=== PATIENT | male | born 1990 | race Hispanic/Latino ===

== ENCOUNTER 2018-12-23 09:47 | Emergency (ER) | payer OTHER, SELFPAY ==
[2018-12-23 09:53] VITALS: BP 121/75; PULSE 70; RESP 18; TEMP 36.2; O2SAT 100
--- NOTE | 2018-12-23 11:41 | ED.HA ---
HPI - Headache General Chief Complaint: Headache Stated Complaint: Migraine for 6 days, trbl thinking, dizzy Time Seen by Provider: 12/23/18 09:55 Source: patient and family Mode of arrival: ambulatory Limitations: no limitations History of Present Illness HPI Narrative: 28-year-old male, nonsmoker and otherwise healthy presents with a chief complaint of a gradually worsening squeezing-type headache over the past few days. He states it is worse with bright lights, loud noise and exertion. He admits to nausea but denies any vomiting. He has had somewhat similar migraine type headaches in the past. He has not been ill and denies any fever, chills or neck pain. He has had no traumatic event and denies any change in diet or medications. MD Complaint: migraine Onset (ago): day(s) Onset description: gradual Location: diffuse Severity: moderate Severity scale (1-10): 7 Quality: aching, throbbing and similar to previous headaches Relieving factors: dark room Exacerbating factors: exertion, light and noise Associated symptoms: nausea Treatments prior to arrival: none Related Data Home Medications Medication Instructions Recorded Confirmed ibuprofen 1 dose PO PRN PRN 12/23/18 12/23/18 ibuprofen [Advil] 1 dose PO DAILY 12/23/18 12/23/18 Allergies Allergy/AdvReac Type Severity Reaction Status Date / Time No Known Drug Allergies Allergy Verified 06/24/18 08:13 Review of Systems Constitutional Denies chills, Denies fever(s), Reports headache(s), Denies lethargy and Denies weakness Eyes Denies change in vision, Denies eye discharge, Denies irritation and Denies loss of vision ENT Ears, Nose, Mouth, and Throat: Denies change in voice, Reports headache(s), Denies neck pain and Denies sore throat Cardiovascular Denies chest pain, Denies irregular heart rhythm, Denies lightheadedness, Denies palpitations, Denies dyspnea, Denies dyspnea on exertion and Denies orthopnea Respiratory Denies cough, Denies dyspnea, Denies dyspnea on exertion and Denies wheezing Gastrointestinal Gastrointestinal: Denies abdominal pain, Denies change in bowel habits, Denies diarrhea, Denies nausea and Denies vomiting Genitourinary Denies hematuria, Denies flank pain, Denies urinary incontinence and Denies urinary urgency Musculoskeletal Denies neck pain Integumentary/Breasts Denies pruritus, Denies erythema, Denies rash and Denies wounds Neurologic Denies confusion, Reports headache(s), Denies loss of vision and Denies weakness Psychiatric Denies anxiety, Denies confusion, Denies depression, Denies homicidal ideation and Denies suicidal ideation Endocrine Denies palpitations Hematologic/Lymphatic Denies easy bruising Allergic/Immunologic Denies wheezing PFSH Medical History Asthma (Chronic ~1990) Chronic back pain (Chronic Unknown) Neurologic disorder (Chronic 2003) Surgical History Hx of tonsillectomy (Resolved ~2000) Family History Father Age: 53 Deaf Mother Age: 55 Hypertension Social History Smoking Status: Former smoker Family History Father Age: 53 Deaf Mother Age: 55 Hypertension Social History Smoking Status: Former smoker Exam Narrative Exam Narrative: 28-year-old male, appears stated age, obviously uncomfortable, sitting in a dark room with eyes closed Initial Vital Signs Initial Vital Signs: Vital Signs Temperature 97.1 F L 12/23/18 09:53 Pulse Rate 70 12/23/18 09:53 Respiratory Rate 18 12/23/18 09:53 Blood Pressure 121/75 12/23/18 09:53 Pulse Oximetry 100 12/23/18 09:53 Const General: cooperative, well developed and in distress Nutritional Appearance: well nourished Orientation: alert, awake, oriented x3 and not confused HENNV Head: normal to inspection Ears: TM normal on the right and TM normal on the left Nose: external nose normal Face and sinus: normal facial exam Mouth: oral mucosae normal Teeth and gingiva: dentition normal Eyes General: appearance normal, both eyes and all related structures Eyelids: eyelids normal Conjunctivae: conjunctivae normal Sclera: sclerae normal Pupils: PERRL EOM: EOM intact bilaterally Neck Neck: normal visual inspection, No positive Brudzinski's sign and No positive Kernig's sign Chest Chest: normal inspection of the chest Resp Effort & Inspection: normal respiratory effort, able to speak in complete sentences, no respiratory distress and no use of accessory muscles Auscultation: clear to auscultation bilaterally, no rales, no rhonchi and no wheezes Cardio Rate: regular rate Rhythm: regular rhythm Heart Sounds: no click, no gallops, no murmurs and no rubs Pulses: normal peripheral pulses GI Inspection: non-distended Palpation: soft, no hepatosplenomegaly, No guarding, No pulsatile mass and No tender Auscultation: normal bowel sounds Back/Spine/Pelvis Back: No CVA tenderness Cervical Spine: cervical ROM normal and No pain with cervical ROM Thoracic/Lumbar Spine: thoracic and lumbar spine normal to inspection Neuro General: alert, awake and oriented x3 Cranial Nerves: CN's II-XI intact bilaterally Cognition: normal cognition Speech: speech normal Gait: normal gait Motor: muscle tone normal throughout Sensory Exam: no sensory deficits noted Course Orders Ordered: Discontinued Medications Dexamethasone (Decadron) 10 mg IV NOW ONE Stop: 12/23/18 11:50 Last Admin: 12/23/18 12:15 Dose: 10 mg Diphenhydramine HCl (Benadryl) 25 mg IV NOW ONE Stop: 12/23/18 11:50 Last Admin: 12/23/18 12:15 Dose: 25 mg Sodium Chloride (Normal Saline 0.9%) 1,000 mls @ 1,000 mls/hr IV BOLUS ONE Stop: 12/23/18 12:48 Last Infusion: 12/23/18 13:13 Dose: 0 mls/hr Admin: 12/23/18 12:16 Dose: 1,000 mls/hr Ketorolac Tromethamine (Toradol) 15 mg IV NOW ONE Stop: 12/23/18 11:50 Last Admin: 12/23/18 12:16 Dose: 15 mg Metoclopramide HCl (Reglan) 10 mg IV NOW ONE Stop: 12/23/18 11:50 Last Admin: 12/23/18 12:16 Dose: 10 mg Reevaluation(s) Reevaluation #1: Patient feels a remarkable improvement after the above-stated therapies Vital Signs - 8 hr 12/23/18 12:10 12/23/18 13:13 Pulse Rate 57 L 62 Respiratory Rate 16 18 Blood Pressure 109/60 Blood Pressure [Right Arm] 111/70 Pulse Oximetry 99 100 MDM - Headache Differential Diagnosis Differential diagnosis: Likely migraine, tension headache, subarachnoid hemorrhage, headache, meningitis, sinusitis and postconcussion syndrome MDM Narrative Medical decision making narrative: Multiple etiologies for patient's symptoms considered including: [Migraine versus atypical migraine versus other] Patient's symptoms improved or duration of stay with above-stated therapies. Findings and discharge diagnosis discussed with patient/family followed by verbalization of understanding Return precautions discussed with patient/family whom verbalize understanding. Discharge Plan Departure Patient Disposition: Home Clinical Impression: Migraine Qualifiers: Migraine type: unspecified Status migrainosus presence: without status migrainosus Intractability: not intractable Qualified Code(s): G43.909 - Migraine, unspecified, not intractable, without status migrainosus Discharge Date/Time: 12/23/18 13:15 Interventions: ED Discharge Assessment Last Done: 12/23/18 13:13 Instructions: Migraine -- Adult Activity Restrictions/Additional Instructions: *You have been diagnosed with [ migraine type headache ] *What to do: *Take medications as directed: tylenol or motrin for ongoing pain *Follow up with your primary care provider in 2-3 days, call for an appointment. Let them know you were seen in the Emergency Department and that we ask that you be seen in follow up *Return to ER if you should have any new, worsening or concerning symptoms Prescriptions: No Action ibuprofen [Advil] 200 mg Tablet 1 dose PO DAILY RF: 0 ibuprofen 1 dose PO PRN PRN (Reason: pain) RF: 0 Referrals: Jes Keys DO [Primary Care Provider] -
[2018-12-23 12:10] VITALS: BP 111/70; PULSE 57; RESP 16; O2SAT 99
[2018-12-23] MEDS: DEXAMETHASONE 10 MG/ML VIAL IV (12:15)
[2018-12-23] MEDS: diphenhydrAMINE 50 MG/ML VIAL 25 MG IV (12:15)
[2018-12-23] MEDS: METOCLOPRAMIDE 10 MG/2 ML INJ IV (12:16)
[2018-12-23] MEDS: SODIUM CHLORIDE 0.9% 1,000 ML 1000 ML IV (12:16)
[2018-12-23] MEDS: KETOROLAC 60 MG/2 ML VIAL 15 MG IV (12:16)
[2018-12-23 13:13] VITALS: BP 109/60; PULSE 62; RESP 18; O2SAT 100
== END 2018-12-23 13:15 | disposition home or self-care (01) ==
PROVIDERS: Emergency Provider Emergency Medicine; PCP Family Medicine
DX: G43.909 Migraine, unspecified, not intractable, without status migrainosus (principal)
CPT/HCPCS: 96361; 96374; 96375; 99283; 99284; J1100; J1200; J1885; J2765

== ENCOUNTER 2019-03-23 14:27 | Emergency (ER) | payer OTHER, SELFPAY ==
[2019-03-23 14:30] VITALS: BP 135/89; PULSE 75; RESP 16; TEMP 37.2; O2SAT 99
[2019-03-23 15:11] VITALS: BP 114/75; PULSE 74; RESP 18; O2SAT 99
[2019-03-23] MEDS: ONDANSETRON 4 MG ODT PO (15:37)
[2019-03-23] MEDS: IBUPROFEN 400 MG TABLET 800 MG PO (15:37)
[2019-03-23] MEDS: MECLIZINE HCL 12.5 MG TABLET 25 MG PO (15:37)
[2019-03-23 16:00] VITALS: BP 125/84; PULSE 73; RESP 18; O2SAT 99
--- NOTE | 2019-03-23 16:08 | ED_ITS ---
HPI - Headache <Mone Monsalve PA-C - Last Filed: 03/23/19 22:02> General Chief Complaint: Headache Stated Complaint: dizzy,nausea Time Seen by Provider: 03/23/19 15:33 Source: patient Mode of arrival: ambulatory Limitations: no limitations History of Present Illness HPI Narrative: This 28-year-old male comes in due to headache and dizziness. He has a history of migraines since his teens, and states that he noted pain in the back of his head and behind his left eye this morning, with some mild nausea and very slight dizziness which she describes as a bit of a spinning sensation. He states that the spinning worsened when he stood up and walk or move around. He states this was not severe initially and he thought he could go to work and go about his day. He ate breakfast and states headache was quite manageable but as he walked around and work more he felt more and more and steady, like the room was spinning and he was swaying and would fall. He states that it is not unusua l for him to get this type of dizziness with his migraines. He states that while he was waiting here in the waiting room, the headaches got somewhat worse. He states that he had some light flashes when his eyes closed and has some light sensitivity, also typical. He states that his ears have felt a little bit muffled and some buzzing in his left ear, no hearing loss. He states he has not had any recent upper respiratory symptoms such as sore throat, fever, or cough. Has not had any vomiting today. He states he is feeling better now lying in a dark room, nausea is somewhat better (he was given meclizine and ibuprofen/acetaminophen). He states he was not having any weakness in his extremities or face, no trouble with speech or swallowing, more difficulty staying upright due to the spinning sensation. Related Data Home Medications Medication Instructions Recorded Confirmed acetaminophen [Tylenol Extra 1,000 mg PO Q6H PRN 03/23/19 03/23/19 Strength] ibuprofen 400 mg PO QID PRN 03/23/19 03/23/19 Allergies Allergy/AdvReac Type Severity Reaction Status Date / Time No Known Drug Allergies Allergy Verified 03/23/19 14:34 Review of Systems <Mone Monsalve PA-C - Last Filed: 03/23/19 22:02> Review of Systems ROS Unobtainable: All systems reviewed & are unremarkable except as noted in HPI and below PFSH <Mone Monsalve PA-C - Last Filed: 03/23/19 22:02> Medical History (Updated 03/23/19 @ 17:00 by Mone Monsalve PA-C) Asthma (Chronic ~1990) Chronic back pain (Chronic Unknown) Migraines (Chronic) Neurologic disorder (Chronic 2003) Surgical History Hx of tonsillectomy (Resolved ~2000) Family History Father Age: 54 Deaf Mother Age: 56 Hypertension Social History Smoking Status: Former smoker Social History Smoking Status: Former smoker Exam <Mone Monsalve PA-C - Last Filed: 03/23/19 22:02> Narrative Exam Narrative: GENERAL APPEARANCE: Patient resting comfortably, in no distress. HEENT: PERRL, EOMI, dull TMs and normal oropharynx with a little PND, tonsils absent NECK: Supple, no masses LUNGS: Clear to auscultation bilaterally. HEART: Rate and rhythm regular without murmur, normal S1 and S2, no S3 or S4. ABDOMEN: Soft, NT, ND, + BS x 4 quadrants NEUROLOGIC: Alert and oriented, normal speech, and coordination. Vertigo elicited with Hallpike maneuver with head turn to each side, there are few beats of horizontal rotary nystagmus MUSCULOSKELETAL: Full Csp AROM, nontender Initial Vital Signs Initial Vital Signs: Vital Signs Temperature 99 F 03/23/19 14:30 Pulse Rate 75 03/23/19 14:30 Respiratory Rate 16 03/23/19 14:30 Blood Pressure 135/89 03/23/19 14:30 Pulse Oximetry 99 03/23/19 14:30 <Jason Matos DO - Last Filed: 03/29/19 23:58> Initial Vital Signs Initial Vital Signs: Vital Signs Temperature 99 F 03/23/19 14:30 Pulse Rate 75 03/23/19 14:30 Respiratory Rate 16 03/23/19 14:30 Blood Pressure 135/89 03/23/19 14:30 Pulse Oximetry 99 03/23/19 14:30 Course <Mone Monsalve PA-C - Last Filed: 03/23/19 22:02> Additional Information: Patient reports feeling headache significantly improved along with improvement in nausea, still some vertigo. This is not a typical of his migraines. He does not feel like he needs IV or other medications at this point and states he wants to go home to rest. Advised not driving or working until better, continue meclizine. Advised that he does need ENT follow-up if symptoms are not resolving since he did have some new buzzing in his left ear 3 days ago prior to these symptoms. He agrees to call his insurance tomorrow for referral to PCP and to determine whether he needs referral to ENT if his symptoms persist. He promised to return if any acutely worsening or new symptoms again in the interim Orders Ordered: Discontinued Medications Ibuprofen (Advil) 800 mg PO NOW ONE Stop: 03/23/19 15:28 Last Admin: 03/23/19 15:37 Dose: 800 mg Meclizine HCl (Antivert) 25 mg PO NOW ONE Stop: 03/23/19 15:28 Last Admin: 03/23/19 15:37 Dose: 25 mg Ondansetron HCl (Zofran Odt) 4 mg PO NOW ONE Stop: 03/23/19 15:28 Last Admin: 03/23/19 15:37 Dose: 4 mg Vital Signs - 8 hr 03/23/19 14:30 03/23/19 15:11 03/23/19 16:00 Temperature 99 F Pulse Rate 75 74 73 Respiratory Rate 16 18 18 Blood Pressure 135/89 Blood Pressure [Left Arm] 114/75 125/84 Pulse Oximetry 99 99 99 03/23/19 17:00 Temperature Pulse Rate 66 Respiratory Rate Blood Pressure Blood Pressure [Left Arm] 111/74 Pulse Oximetry 100 <Jason Matos DO - Last Filed: 03/29/19 23:58> Orders Ordered: Discontinued Medications Ibuprofen (Advil) 800 mg PO NOW ONE Stop: 03/23/19 15:28 Last Admin: 03/23/19 15:37 Dose: 800 mg Meclizine HCl (Antivert) 25 mg PO NOW ONE Stop: 03/23/19 15:28 Last Admin: 03/23/19 15:37 Dose: 25 mg Ondansetron HCl (Zofran Odt) 4 mg PO NOW ONE Stop: 03/23/19 15:28 Last Admin: 03/23/19 15:37 Dose: 4 mg Vital Signs - 8 hr 03/23/19 14:30 03/23/19 15:11 03/23/19 16:00 Temperature 99 F Pulse Rate 75 74 73 Respiratory Rate 16 18 18 Blood Pressure 135/89 Blood Pressure [Left Arm] 114/75 125/84 Pulse Oximetry 99 99 99 03/23/19 17:00 Temperature Pulse Rate 66 Respiratory Rate Blood Pressure Blood Pressure [Left Arm] 111/74 Pulse Oximetry 100 Discharge Plan Departure Patient Disposition: Home Clinical Impression: Vertigo Migraine Qualifiers: Migraine type: without aura Status migrainosus presence: without status corby rainosus Intractability: not intractable Qualified Code(s): G43.009 - Migraine without aura, not intractable, without status migrainosus Discharge Date/Time: 03/23/19 17:29 Interventions: ED Discharge Assessment Last Done: 03/23/19 17:28 Instructions: DI for Migraine, DI for Vertigo Activity Restrictions/Additional Instructions: Since you are feeling better, you can return home to rest. Please rest in a dark, quiet place. Continue [id number] pain medicine as needed (ibuprofen every 8 hours and Tylenol every 4-6 hours as needed). Please start [id number] meclizine, 25-50 mg up to every 6 hours as needed for the dizziness/vertigo. Remember that this can make you sleepy. You should not be driving or working as long as you are taking this medication and for as long as you have the vertigo. Remember to change positions very slowly, keep your head straight and ?move like a robot? as talked about. As we discussed, you should return here if you have any acutely worsening symptoms, or new symptoms such as vision change, acutely worsening headache, fever, or profuse vomiting. Please be sure to call your insurance 1st thing in the morning to get a referral to a local primary care provider. In addition, you also need to see an ear, nose and throat specialist if your vertigo is not resolving along with your headache, or if you continue to have buzzing in your ear, as that can be signs of another condition. It is reasonable to monitor to see if this resolves as your headache continues to improved since you have had vertigo with your headaches in the past. I have given you the information for Dr. Morgan here in town below, and if you need follow-up there please call and let them know you were seen in the emergency room and we referred you for follow-up Prescriptions: No Action acetaminophen [Tylenol Extra Strength] 500 mg Tablet 1,000 mg PO Q6H PRN (Reason: Pain (Scale Score 4-6)) RF: 0 ibuprofen 200 mg Tablet 400 mg PO QID PRN (Reason: Pain (Scale Score 4-6)) RF: 0 <Jason Matos DO - Last Filed: 03/29/19 23:58> Cosign ED Attending Prasanthature Attestation: I was immediately available in the department for consultation. Documentation has been reviewed. I agree with assessment and plan.
[2019-03-23 17:00] VITALS: BP 111/74; PULSE 66; O2SAT 100
== END 2019-03-23 17:29 | disposition home or self-care (01) ==
PROVIDERS: Emergency Provider Internal Medicine; PCP Family Medicine
DX: G43.909 Migraine, unspecified, not intractable, without status migrainosus (principal); R42 Dizziness and giddiness; R11.0 Nausea
CPT/HCPCS: 99283

== ENCOUNTER → 2021-11-22 08:32 | Outpatient (CLI) | payer OTHER, SELFPAY ==
[2021-11-22 08:58] LABS: COVID19 -Nasal RAPID POSITIVE (Negative)
== END ==
PROVIDERS: PCP Family Medicine; Referring Provider Nurse Practitioner Family; Visit Provider Nurse Practitioner Family
DX: U07.1 COVID-19 (principal); Z20.822 Contact with and (suspected) exposure to COVID-19
CPT/HCPCS: 87635

== ENCOUNTER → 2022-05-07 07:34 | Outpatient (CLI) | payer OTHER, SELFPAY | PROVIDERS: PCP Family Medicine; Visit Provider Physician Assistant | DX: J02.9 Acute pharyngitis, unspecified (principal) | CPT/HCPCS: 87070; 87147 ==

== ENCOUNTER 2024-01-20 03:28 | Emergency (ER) | payer OTHER, MEDICAID, SELFPAY ==
[2024-01-20 03:35] VITALS: BP 146/88; PULSE 99; RESP 20; TEMP 36.6; O2SAT 98; BMI 25.4
--- NOTE | 2024-01-20 03:51 | PC.NURSE ---
MD Vo at bedside.
--- NOTE | 2024-01-20 03:52 | ED.ARRPALP ---
HPI - Arrhythmia/Palpitations General Chief Complaint: Arrhythmia/Palpitations Stated Complaint: tried cbd jelly, feeling anxious now Time Seen by Provider: 01/20/24 03:35 Source: patient Mode of arrival: Family Vehicle History of Present Illness HPI narrative: Has a healthy 33-year-old male presents today with palpitations. He reports that for the last 2 weeks not really been able to more than 3 hours at a time. 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 He takes a nap during the day he drinks about 5 cups of coffee his last couple copies puberty in the afternoon. He is tried melatonin and other things he just does not really feel like they work. So today he tried CBD gummy that he says was 5 mg. He took it at about 120 in the morning he feels like he is having some palpitations he feels anxious. He reports that he does have some anxiety at baseline. He feels like this is a reaction to the CBD He is never taken THC before either. Related Data Allergies Allergy/AdvReac Type Severity Reaction Status Date / Time No Known Drug Allergies Allergy Verified 05/07/22 07:39 Patient History Medical History Asthma (~1990) Chronic back pain (Unknown) Migraines Neurologic disorder (2003) Surgical History Hx of tonsillectomy (~2000) Family History Father Age: 58 Deaf Mother Age: 60 Hypertension Social History Smoking Status: Former smoker Smoking Status: Former smoker alcohol intake frequency: 0-2 drinks per day Substance Use Type: does not use Exam Initial Vital Signs Initial Vital Signs: Vital Signs Temperature 97.8 F 01/20/24 03:35 Pulse Rate 99 H 01/20/24 03:35 Respiratory Rate 20 01/20/24 03:35 Blood Pressure 146/88 H 01/20/24 03:35 Pulse Oximetry 98 01/20/24 03:35 Oxygen Delivery Method Room Air 01/20/24 03:35 GENERAL: Alert well-appearing 33-year-old male and in no acute distress. HEENT: Head atraumatic,EOMI, pupils reactive, face symmetric, moist mucous membranes CARDIOVASCULAR: Regular rate and rhythm without murmurs, rubs or gallops. RESPIRATORY: Breath sounds equal bilaterally, no wheezes rales or rhonchi. ABDOMEN: Soft, nontender. Normoactive bowel sounds all 4 quadrants. No guarding or rebound. EXTREMITIES: Normal range of motion, no clubbing or edema. Neurovascularly intact NEUROLOGICAL: Alert and oriented x4. SKIN: Warm, dry, no laceration, no petechiae, no rashes or lesions. Course Orders Ordered: ED Orders 01/20/24 03:53 EKG-12 Lead Stat Vital Signs Vital signs: Vital Signs - 8 hr 01/20/24 03:35 01/20/24 03:53 01/20/24 03:54 Temperature 97.8 F Pulse Rate 99 H 98 H 95 H Respiratory Rate 20 Blood Pressure 146/88 H Pulse Oximetry 98 100 Oxygen Delivery Method Room Air 01/20/24 04:00 01/20/24 04:00 Temperature Pulse Rate 88 Respiratory Rate Blood Pressure 120/71 Pulse Oximetry 100 Oxygen Delivery Method Room Air MDM - Arrhythmia/Palpitations ECG Data Attestation: I personally reviewed and interpreted this ECG as follows: Interpretation: Normal sinus rhythm rate 86 MO interval 152 QRS [address] changes is normal intervals MDM Narrative Medical decision making narrative: Patient 33-year-old healthy male experiencing palpitations after taking CBD gummy. Highly suspect patient is experiencing the effects of CBD though this intense. We discussed with how to help him sleep by decreasing his caffeine intake not drinking caffeine so late in the day. Maybe trying a different dose of melatonin. And does not currently have a primary care provider but encouraged get 1 Discharge Plan Departure Patient Disposition: Home Clinical Impression: Heart palpitations, Insomnia Instructions: Insomnia, No More Sleepless Nights: Dealing With Insomnia, Mindful Meditation May Reduce Symptoms and Complications of Insomnia Activity Restrictions/Additional Instructions: *You have been diagnosed with insomnia palpitations *What to do: I suspect that weightbear experiencing as directly related to the CBD coming. I recommend decreasing your caffeine intake not drinking so late in the day. May try other things such as meditation to help sleep. Recommend a lower dose of melatonin Do not recommend taking CBD again *Continue to take medications as directed *Follow up with your primary care provider in 2-3 days or call [phone] *Return to ER if you should have any new, worsening or concerning symptoms Referrals: Jes Keys DO [Primary Care Provider] - Stand Alone Forms: Patient Portal/API
[2024-01-20 03:53] VITALS: PULSE 98; O2SAT 100
[2024-01-20 03:54] VITALS: PULSE 95
--- NOTE | 2024-01-20 03:57 | PC.NURSE ---
Respiratory therapy at bedside for EKG.
[2024-01-20 04:00] VITALS: BP 120/71; PULSE 88; O2SAT 100
== END 2024-01-20 04:19 | disposition home or self-care (01) ==
PROVIDERS: Emergency Provider Emergency Medicine; PCP Family Medicine
DX: R00.2 Palpitations (principal); G47.00 Insomnia, unspecified
CPT/HCPCS: 93005; 93010; 99281; 99282